=== PATIENT | female | born 1945 | race Caucasian/White ===

== ENCOUNTER 2019-12-26 09:05 | Outpatient (CLI) | payer MEDICARE, OTHER, SELFPAY ==
--- NOTE | ~2019-12-26 | MM_ITS ---
EXAMINATION: MM screening david BI w jennifer HISTORY: Screening mammogram TECHNIQUE: Craniocaudal and mediolateral oblique 3-D tomosynthesis images were obtained and synthetic 2-D images were generated. CAD analysis was submitted and interpreted. COMPARISON: 12/19/2018, 12/10/2017, 01/05/2016 bilateral digital screening mammogram examinations BREAST PARENCHYMAL COMPOSITION: FINDINGS: Prominent bilateral trochanteric calcifications. Scattered bilateral punctate benign-appear ing microcalcifications. There is no evidence of suspicious mass, calcification, or architectural dis tortion to suggest malignancy in either breast. There has been no suspicious interval change. IMPRESSION: 1. No mammographic evidence of malignancy. 2. Recommend routine screening mammography in one year. BI-RADS Category 2: Benign finding(s). Reviewed, dictated and finalized at location A.
== END 2019-12-26 09:06 | disposition home or self-care (01) ==
PROVIDERS: PCP Internal Medicine; Visit Provider Nurse Practitioner Obstetrics & Gynecology
DX: Z12.31 Encounter for screening mammogram for malignant neoplasm of breast (principal)
CPT/HCPCS: 77063; 77067

== ENCOUNTER → 2020-07-01 13:03 | Outpatient (CLI) | payer MEDICARE, OTHER, SELFPAY ==
--- NOTE | ~2020-07-01 | DEXA_ITS ---
Bone Density Report Name: Shana Cervantes Age: 75 Sex: Female Ethnicity: White Date of : 1945 Indication: postmenopausal; screening for osteoporosis; height loss; history of glucocorticoids; hysterectomy; Referring Provider: JohnShane Study: Bone densitometry was performed. Exam Date: July 01, 2020 Accession number: [id number] Bone Density: Region BMD T-score Z-score Classification AP Spine (L1-L4) 1.372 3.0 5.3 Normal Femoral Neck (Left) 0.884 0.3 2.3 Normal Total Hip (Left) 1.033 0.7 2.5 Normal Femoral Neck (Right) 0.877 0.2 2.3 Normal Total Hip (Right) 1.069 1.0 2.8 Normal Total Hip Mean 1.051 0.9 2.7 Normal World Health Organization criteria for BMD impression classify patients as: Normal (T-score at or above -1.0), Osteopenia (T-score between -1.0 and -2.5), or Osteoporosis (T-score at or below -2.5). 10-year Fracture Risk: FRAX not reported because: All T-scores for Spine Total, Hip Total, Femoral Neck at or above -1.0 Previous Exams: Region Exam Age BMD T-score BMD Change BMD Change Date g/cm2 vs Baseline vs Previous AP Spine(L1-L4) 07/01/2020 75 1.372 3.0 0.202 0.110 01/05/2016 70 1.262 2.0 0.091* 0.062* 11/15/2012 67 1.200 1.4 0.029* -0.037 10/10/2009 64 1.237 1.7 0.066 0.066 08/27/2006 61 1.171 1.1 Total Hip(Left) 07/01/2020 75 1.033 0.7 -0.185 -0.257 01/05/2016 70 1.291 2.9 0.073* 0.066* 11/15/2012 67 1.225 2.3 0.007 0.026 10/10/2009 64 1.198 2.1 -0.020 -0.020 08/27/2006 61 1.218 2.3 Total Hip(Right) 07/01/2020 75 1.069 1.0 -0.133 -0.142 01/05/2016 70 1.211 2.2 0.009 0.119* 11/15/2012 67 1.092 1.2 -0.110* -0.148 10/10/2009 64 1.239 2.4 0.037 0.037 08/27/2006 61 1.202 2.1 *Denotes significance at 95% confidence level, LSC for AP Spine = 0.022 g/cm2, LSC for Total Hip = 0.027 g/cm2 Clinical Information Provided by Patient: Has taken Glucocorticoids Has used the following medications: Vitamin D Has the following medical conditions: Hysterectomy Patient maximum height was 67 Menopause Age: 55 No regular weight bearing exercise Does not regularly consume dairy products Onset of menses at age 12 Number of children 5
== END ==
PROVIDERS: PCP Internal Medicine; Visit Provider Internal Medicine Endocrinology, Diabetes & Metabolism
DX: E28.319 Asymptomatic premature menopause (principal); E55.9 Vitamin D deficiency, unspecified
CPT/HCPCS: 77080

== ENCOUNTER 2020-11-11 01:11 | Day surgery (SDC) | payer MEDICARE, OTHER, SELFPAY ==
[2020-10-28 09:22] VITALS: BMI 26.4
--- NOTE | 2020-11-11 09:31 | SUR.PREOP ---
Upon admission, patient states that she blacked out and passed out after taking the mag citrate at 0300 this morning. She states she hit her head on the side of the bathtub. Denies any dizziness, confusion, bruising, nausea, vomiting, or bleeding. There are no visible stevenson on her head. Informed Dr. Khoury of patients report. No intervention at this time.
[2020-11-11 09:35] VITALS: BP 119/74; PULSE 73; RESP 16; TEMP 36.2; O2SAT 99
--- NOTE | 2020-11-11 09:41 | SUR.PREOP ---
Patient is complaining of L. buttocks pain aggravated by movement. She states that she did not hit her buttocks upon falling last night. No bruising noted to the area. Patient states that it may be caused from sitting on the toilet seat for prolonged periods of time. Patient is currently in bed relaxing.
[2020-11-11] MEDS: LACTATED RINGERS 1,000 ML 150 ML IV CONT (09:44)
--- NOTE | 2020-11-11 09:44 | WPDANESEPPF ---
Anes - Initial Pre Proc Eval Procedure: Operation Date: 11/11/20 10:30 Proposed Procedures p Colonoscopy - Can Arce MD Date/Time: 11/11/20 09:44 Surgeon: Can Arce MD Pre Op Diagnosis: change in bowel habits Patient Data Age: 75 Gender: F Height: 1.63 m Weight: 67 kg Last Vital Signs Temp 97.2 F L 11/11/20 09:35 Pulse 73 11/11/20 09:35 Resp 16 11/11/20 09:35 BP 119/74 11/11/20 09:35 Pulse Ox 99 11/11/20 09:35 Allergies Allergy/AdvReac Type Severity Reaction Status Date / Time adhesive tape Allergy Unknown BLISTERS Verified 11/11/20 09:28 atorvastatin Allergy Unknown Unknown Verified 11/11/20 09:28 rosuvastatin Allergy Unknown Unknown Verified 11/11/20 09:28 Home Medications Medication Instructions Recorded Confirmed Type allopurinol 300 mg tablet 300 mg PO DAILY 10/11/20 10/28/20 History bumetanide 2 mg tablet 2 mg PO DAILY 10/11/20 10/28/20 History gabapentin 300 mg capsule 300 mg PO BID 10/11/20 10/28/20 History levothyroxine 75 mcg capsule 75 mcg PO DAILY 10/11/20 10/28/20 History pravastatin 80 mg tablet 80 mg PO DAILY 10/11/20 10/28/20 History Dedry Eye [place] 2 tablet PO BID 10/28/20 10/28/20 History aspirin 325 mg PO DAILY 10/28/20 10/28/20 History calcium carbonate-vitamin D3 1 tablet PO DAILY 10/28/20 10/28/20 History [Calcium + D] cholecalciferol (vitamin D3) 125 mcg PO DAILY 10/28/20 10/28/20 History [Vitamin D3] cyanocobalamin (vitamin B-12) 1,000 mcg PO DAILY 10/28/20 10/28/20 History [Vitamin B-12] cyclosporine [Restasis] 1 drp LEFT EYE BID 10/28/20 10/28/20 History furosemide 60 mg PO DAILY 10/28/20 10/28/20 History magnesium oxide 400 mg PO BID 10/28/20 10/28/20 History iadlinlssdtw-ota-nbil-FA-vit K tablet PO 10/28/20 History [Adults Multivitamin] polyethylene glycol 3350 [Miralax] 17 g PO PRN PRN 10/28/20 10/28/20 History trazodone 150 mg PO HS 10/28/20 10/28/20 History Patient hx anesthesia problems: none Family hx anesthesia problems: none PMF Family History Family History (Updated 10/11/20 @ 13:44 by oJanne Cano [facility]) Father Hypertension Heart disease Mother Diabetes mellitus Uterine cancer Sibling Uterine cancer Other Breast cancer Social History Social History (Updated 10/11/20 @ 13:44 by Joanne Cano [facility]) Smoking status: Never smoker Alcohol intake: never Substance use: never Substance use type: does not use Living arrangements: alone Spiritual care concerns: No Anes - Eval Final PreProcedure Day of Procedure 11/11/20 09:44 Patient weight: normal Heart: irregular rhythm Lungs: clear to auscultation Airway: Mallampati scale class II Neurological: alert and oriented Last oral intake: >/= 8 hours ASA classification: III Emergent: no Anesthetic plan: proceed Anesthesia type and monitoring: general GIVS and standard monitoring Informed Consent: The patient's anesthetic plan and its attendant risks and benefits were discussed with the patient/family/POA. Questions were solicited and answers provided to the satisfaction of the patient/family/POA.
--- NOTE | 2020-11-11 09:59 | WPDGICN ---
Assessment and Plan Assessment and plan (1) Change in bowel habit: Code(s): R19.4 - Change in bowel habit Status: Acute Assessment and Plan: Patient reports several episodes of fecal impaction which represent change in her bowel habits. Plan is for stool softener and laxatives routinely. A colonoscopy will be planned to evaluate more thoroughly. Further recommendations may be given after endoscopy. (2) Constipation: Code(s): K59.00 - Constipation, unspecified Status: Acute GI Consult Note Consult date/time: 11/11/20 09:59 HPI: Shana Cervantes is a 75 year old female Presents for colonoscopy. Patient reports 3 episodes of constipation and fecal impaction in July of 2020. During that interval of time she may have had a small amount of bright red blood per rectum. She did require manual disimpaction. Patient reports now that she has no sensation in poor control of bowel she is unaware when a bowel movement happens. She states she takes MiraLax but this does not routinely help her bowel habits. When asked specifically about laxative she states that she does not take any. It is unclear whether she has tried Metamucil in the past. Her family history is noncontributory. She denies any weight loss. She states that she did have a significant amount of abdominal pain a large bowel movement with preparation for colonoscopy. Patient presents today for screening colonoscopy because of change in bowel habits. Review of Systems Review of Systems: All systems reviewed & are unremarkable except as noted in HPI and below [facility] Family History Family History (Updated 10/11/20 @ 13:44 by Joanne Cano CMA) Father Hypertension Heart disease Mother Diabetes mellitus Uterine cancer Sibling Uterine cancer Other Breast cancer Social History Social History (Updated 10/11/20 @ 13:44 by Joanne Cano CMA) Smoking status: Never smoker Alcohol intake: never Substance use: never Substance use type: does not use Living arrangements: alone Spiritual care concerns: No Meds Home Medications and Allergies Home Medications Medication Instructions Recorded Confirmed Type allopurinol 300 mg tablet 300 mg PO DAILY 10/11/20 10/28/20 History bumetanide 2 mg tablet 2 mg PO DAILY 10/11/20 10/28/20 History gabapentin 300 mg capsule 300 mg PO BID 10/11/20 10/28/20 History levothyroxine 75 mcg capsule 75 mcg PO DAILY 10/11/20 10/28/20 History pravastatin 80 mg tablet 80 mg PO DAILY 10/11/20 10/28/20 History Dedry Eye [place] 2 tablet PO BID 10/28/20 10/28/20 History aspirin 325 mg PO DAILY 10/28/20 10/28/20 History calcium carbonate-vitamin D3 1 tablet PO DAILY 10/28/20 10/28/20 History [Calcium + D] cholecalciferol (vitamin D3) 125 mcg PO DAILY 10/28/20 10/28/20 History [Vitamin D3] cyanocobalamin (vitamin B-12) 1,000 mcg PO DAILY 10/28/20 10/28/20 History [Vitamin B-12] cyclosporine [Restasis] 1 drp LEFT EYE BID 10/28/20 10/28/20 History furosemide 60 mg PO DAILY 10/28/20 10/28/20 History magnesium oxide 400 mg PO BID 10/28/20 10/28/20 History tqrnodzdmxar-smb-mhnt-FA-vit K tablet PO 10/28/20 History [Adults Multivitamin] polyethylene glycol 3350 [Miralax] 17 g PO PRN PRN 10/28/20 10/28/20 History trazodone 150 mg PO HS 10/28/20 10/28/20 History Allergies Allergy/AdvReac Type Severity Reaction Status Date / Time adhesive tape Allergy Unknown BLISTERS Verified 11/11/20 09:28 atorvastatin Allergy Unknown Unknown Verified 11/11/20 09:28 rosuvastatin Allergy Unknown Unknown Verified 11/11/20 09:28 Vital Signs Vital Signs - 24 hr 11/11/20 09:35 Temperature 97.2 F L Pulse Rate 73 Respiratory Rate 16 Blood Pressure 119/74 Pulse Oximetry 99 Exam Narrative: Exam Narrative: Physical exam reveals patient be alert. Vital signs stable. HEENT exam is unremarkable. Patient is anicteric. Lungs are clear to auscultation and percussion. Heart is without
[2020-11-11] MEDS: SIMETHICONE ORAL SUSPENSION 20 MG/0.3 ML 30 ML BOTTLE 0.6 ML IRRIGATION (10:17)
[2020-11-11 10:35] VITALS: BP 102/64; PULSE 68; RESP 22; O2SAT 100
[2020-11-11 10:45] VITALS: BP 115/67; PULSE 70; RESP 21; O2SAT 100
[2020-11-11 10:55] VITALS: BP 121/81; PULSE 70; RESP 17; O2SAT 100
== END 2020-11-11 11:09 | disposition home or self-care (01) ==
PROVIDERS: PCP Internal Medicine; Visit Provider Internal Medicine Gastroenterology
PROC: 0DJD8ZZ Inspection of Lower Intestinal Tract, Via Natural or Artificial Opening Endoscopic (ICD-10-PCS; CPT 45378; principal; 2020-11-11 10:30)
DX: R19.4 Change in bowel habit (principal); K57.30 Diverticulosis of large intestine without perforation or abscess without bleeding; E03.9 Hypothyroidism, unspecified; Z79.82 Long term (current) use of aspirin
CPT/HCPCS: 45378; J2704; J7120

== ENCOUNTER 2020-12-27 15:59 | Outpatient (CLI) | payer MEDICARE, OTHER, SELFPAY ==
--- NOTE | ~2020-12-27 | MM_ITS ---
EXAMINATION: MM screening david BI w jennifer HISTORY: Screening mammogram TECHNIQUE: Craniocaudal and mediolateral oblique 3-D tomosynthesis images were obtained and synthetic 2-D images were generated. CAD analysis was submitted and interpreted. COMPARISON: 12/26/2019, 12/19/2018, 12/10/2017 bilateral digital screening mammogram examinations BREAST PARENCHYMAL COMPOSITION: There are scattered areas of fibroglandular density. FINDINGS: Bilateral benign calcifications including prominent arterial calcifications. There is no ev idence of suspicious mass, calcification, or architectural distortion to suggest malignancy in either breast. There has been no suspicious interval change. IMPRESSION: 1. No mammographic evidence of malignancy. 2. Recommend routine screening mammography in one year. BI-RADS Category 2: Benign finding(s). Reviewed, dictated and finalized at location A.
== END 2020-12-27 16:00 | disposition home or self-care (01) ==
PROVIDERS: PCP Internal Medicine; Visit Provider Obstetrics & Gynecology
DX: Z12.31 Encounter for screening mammogram for malignant neoplasm of breast (principal)
CPT/HCPCS: 77063; 77067

== ENCOUNTER 2021-02-16 10:57 | Outpatient (CLI) | payer MEDICARE, OTHER, SELFPAY ==
--- NOTE | ~2021-02-16 | US_ITS ---
EXAMINATION: US venous doppler [facility] DATE: 02/16/2021 11:31 INDICATION: Lower limb edema. TECHNIQUE: Grayscale ultrasound images without and with compression and Doppler ultrasound images of the bilateral lower extremity veins were obtained. COMPARISON: Ultrasound 01/19/2010 FINDINGS: The visualized portions of right common femoral vein, profunda (deep) femoral vein, femoral vein, pop liteal vein, peroneal veins, posterior tibial veins, and greater saphenous vein outflow are patent. The visualized portions of left common femoral vein, profunda femoral vein, femoral vein, popliteal v ein, peroneal veins, posterior tibial veins, and greater saphenous vein outflow are patent. IMPRESSION: 1. No deep venous thrombosis. Reviewed, dictated and finalized at location A.
== END 2021-02-16 10:58 | disposition home or self-care (01) ==
LOC: ANHIMG 11:01
PROVIDERS: PCP Internal Medicine; Visit Provider Internal Medicine
DX: R60.0 Localized edema (principal)
CPT/HCPCS: 93970